=== PATIENT | male | born 1950 | race Caucasian/White ===

== ENCOUNTER → 2024-01-30 12:50 | Outpatient (REF) | payer MEDICARE, OTHER, SELFPAY | LOC: RAD 12:50 | PROVIDERS: ATTENDING PHYSICIAN Physician Assistant | DX: M54.16 Radiculopathy, lumbar region (principal) | CPT/HCPCS: 72110 ==

== ENCOUNTER → 2024-11-26 08:18 | Outpatient (REF) | payer MEDICARE, OTHER, SELFPAY | LOC: RAD 08:18 | PROVIDERS: ATTENDING PHYSICIAN Physician Assistant Medical | DX: M19.90 Unspecified osteoarthritis, unspecified site (principal); R54 Age-related physical debility; M85.88 Other specified disorders of bone density and structure, other site | CPT/HCPCS: 77080 ==